=== PATIENT | male | born 1945 | race Caucasian/White ===

== ENCOUNTER 2017-01-15 07:31 | Day surgery (SDC) | payer MEDICARE, BC ==
[2017-01-14 12:26] VITALS: BMI 22.1
[~2017-01-15] VITALS: Ht 167.6 cm; Wt 72.0 kg
[2017-01-15] VITALS (14 sets, daily range): BP systolic 159–214; BP diastolic 89–117; PULSE 62–85; RESP 14–22; Ht 167.6 cm; Wt 72.0 kg
[2017-01-15] MEDS ORDERED: BUDE6HFA INHALATION (09:45)
[2017-01-15] MEDS ORDERED: LORA1TAB PO (09:45)
[2017-01-15] MEDS ORDERED: ATOR40TA68 PO (09:45)
[2017-01-15] MEDS ORDERED: TIMO5DRO7 OP (09:45)
[2017-01-15] MEDS ORDERED: METO25TA7 PO (09:45)
[2017-01-15] MEDS ORDERED: LEVO175T6 PO (09:45)
[2017-01-15] MEDS ORDERED: OLME1TAB5 PO (09:45)
[2017-01-15] MEDS ORDERED: PANT40TA3 PO (09:45)
[2017-01-15] MEDS ORDERED: BUPIVACAINE 0.25% (MPF) 30 ML INJ ONE (10:33)
[2017-01-15] MEDS ORDERED: FENTAnyl 50 MCG/ML VIAL ONE ×2 (10:53→12:07)
[2017-01-15] MEDS ORDERED: DEXAMETHASONE 4 MG/ML 1 ML INJ ONE (11:09)
[2017-01-15] MEDS ORDERED: GLYCOPYRROLATE 0.4 MG INJ ONE (11:20)
[2017-01-15] MEDS ORDERED: NEOSTIGMINE 3 MG/3 ML SYRINGE ONE (11:20)
[2017-01-15] MEDS ORDERED: ROPIVACAINE 0.5 % 30 ML VIAL ONE (11:20)
[2017-01-15] MEDS ORDERED: ROCURONIUM 50 MG INJ ONE (11:20)
[2017-01-15] MEDS ORDERED: PROPOFOL 20 ML ONE (11:20)
[2017-01-15] MEDS ORDERED: CEFAZOLIN 1 GM INJ ONE (11:20)
[2017-01-15] MEDS ORDERED: SUCCINYLCHOLINE CHLORIDE 100 MG/5 ML SYG IV ONE (11:20)
[2017-01-15] MEDS ORDERED: LIDOCAINE 2% (SDV) 5 ML INJ ONE (11:20)
[2017-01-15] MEDS ORDERED: LABETALOL HCL 20MG INJ ONE (11:23)
[2017-01-15] MEDS: HYDROmorphONE (0.2 MG/ML) 10ML SYG IV PRN ×3 (12:00→12:21)
[2017-01-15] MEDS ORDERED: hydrALAzine 20 MG INJ IV PRN (12:00)
[2017-01-15] MEDS ORDERED: ONDANSETRON 4 MG INJ IV PRN ×2 (12:00)
[2017-01-15] MEDS ORDERED: morphine 2 MG INJ IV PRN (12:00)
[2017-01-15] MEDS ORDERED: LABETALOL HCL 20MG INJ IV PRN (12:00)
[2017-01-15] MEDS ORDERED: FENTAnyl 50 MCG/ML VIAL IV PRN (12:00)
[2017-01-15] MEDS ORDERED: OXYCODONE/ACETAMINOPHEN (5/325) TAB PO PRN ×3 (12:00)
[2017-01-15] MEDS ORDERED: DIPHENHYDRAMINE 50 MG INJ IV PRN (12:00)
[2017-01-15] MEDS ORDERED: MEPERIDINE 25 MG INJ IV PRN (12:00)
[2017-01-15] MEDS: FENTAnyl 50 MCG/ML VIAL IV PRN ×2 (12:00→12:14)
[2017-01-15] MEDS ORDERED: HYDROmorphONE (0.2 MG/ML) 10ML SYG IV PRN ×2 (12:00)
[2017-01-15] MEDS ORDERED: HYDROmorphONE (0.2 MG/ML) 10ML SYG IV ONE (12:03)
[2017-01-15] MEDS ORDERED: hydrALAzine 20 MG INJ ONE (12:07)
--- NOTE | 2017-01-15 12:07 | OPR ---
DATE OF OPERATION: 01/15/2017 PREOPERATIVE DIAGNOSIS: Gallstones without obstruction. POSTOPERATIVE DIAGNOSIS: Gallstones without obstruction. OPERATION PERFORMED Laparoscopic cholecystectomy. SURGEON: Andrei Garcia M.D. ANESTHESIA: General. ANESTHESIOLOGIST: MD Hanna OPERATIVE REPORT: After satisfactory general anesthesia was achieved, the abdomen was prepped and d raped in the usual fashion. The abdomen was insufflated with carbon dioxide through an umbilical Ve ress needle to 15 mmHg pressure. The Veress needle was removed and the umbilical incision extended to 5 mm, through which a 5 mm trocar was placed. Laparoscopy showed a distended gallbladder only. Under direct visualization, a 10 mm epigastric trocar was placed as well as two 5 mm right lateral a bdominal trocars. The dome of the gallbladder was grasped and retracted superiorly. Sukhi's arlene ch was retracted inferiorly. The hepatoduodenal ligament was carefully dissected. The cystic duct was dissected and triply hemoclipped high at the junction of the gallbladder and the cystic duct. C ystic artery was identified immediately posteriorly. This was triply hemoclipped and divided. The gallbladder was then dissected from below and placed fully intact into an EndoCatch, removed via the epigastric route. Hemostasis of the liver bed was total and irrigant returned clear. The abdomen was then desufflated and the trocars were removed. The fascia of the epigastrium was closed with 0 Vicryl. Skin punctures were infiltrated with 30 mL of 0.25% plain Marcaine and closed with michael. Operative blood loss less than 10 mL. Sponge and needle counts reported as correct x2. The patient tolerated the procedure well and without incident or complication. Dictated By: ANDREI WARREN/CAROLINE Conf#: [id number] DID#: [id number] CC: RUDI MARQUEZ MD;*EndCC*
== END 2017-01-15 13:40 | disposition home or self-care (01) ==
LOC: SDS 07:31
PROVIDERS: ATTEND Surgery
DX: K80.10 Calculus of gallbladder with chronic cholecystitis without obstruction (principal); I10 Essential (primary) hypertension; F41.9 Anxiety disorder, unspecified
CPT/HCPCS: 47562; 88304; J0330; J0360; J0690; J1100; J1170; J2270; J2710; J2795; J3010